=== PATIENT | female | born 1985 | race Caucasian/White ===

== ENCOUNTER → 2024-02-20 14:44 | Outpatient (REF) | payer BC, SELFPAY | LOC: HWRAD 14:44 | PROVIDERS: ATTENDING PHYSICIAN Internal Medicine Endocrinology, Diabetes & Metabolism; FAMILY PHYSICIAN Physician Assistant Medical | DX: E04.2 Nontoxic multinodular goiter (principal); M25.561 Pain in right knee | CPT/HCPCS: 73564; 76536 ==

== ENCOUNTER → 2024-04-30 08:41 | Outpatient (REF) | payer BC, SELFPAY ==
[2024-04-30 09:09] VITALS: BP 141/91; BP_SYST 89
== END ==
LOC: RADI 08:41
PROVIDERS: ATTENDING PHYSICIAN Internal Medicine Endocrinology, Diabetes & Metabolism
DX: E04.1 Nontoxic single thyroid nodule (principal)
CPT/HCPCS: 88173; 10005

== ENCOUNTER 2024-06-24 06:19 | Day surgery (SDC) | payer BC, SELFPAY ==
[2024-06-19 14:03] VITALS: BMI 53.3
[2024-06-19 14:56] LABS: Hematocrit 38.4 % (37.0-47.0); Hemoglobin 12.7 g/dL (12.0-16.0); Mean Corp Hgb Conc. 33.1 g/dL (33.0-37.0); Mean Corpuscular Hgb 26.8 pg (27.0-31.0); Mean Corpuscular Volume 81.2 fL (81.0-99.0); Mean Platelet Volume 9.8 fL (7.4-10.4); Platelet Count 338 10^3/uL (130-400); Red Blood Cell Count 4.73 10^6/uL (4.20-5.40); Red Cell Dist. Width 13.4 % (11.5-14.5)
[2024-06-19 15:05] LABS: INR 1.08
[2024-06-19 15:24] LABS: ALT (SGPT) 25 U/L (0-35); AST (SGOT) 35 U/L (14-36); Albumin 4.1 g/dl (3.5-5.0); Alkaline Phosphatase 79 U/L (38-126); Blood Urea Nitrogen 13 mg/dl (7-17); Calcium 8.9 mg/dl (8.4-10.2); Carbon Dioxide 21 mmol/L (22-30); Chloride 105 mmol/L (98-107); Estimated Creatinine Clearance > 125 ml/min; Glucose 74 mg/dl (70-99); Potassium 3.8 mmol/L (3.5-5.1); Sodium 136 mmol/L (135-145); Total Bilirubin 0.8 mg/dl (0.2-1.3); eGFR > 60.00
[2024-06-24] VITALS (15 sets, daily range): BP systolic 112–149; BP diastolic 68–93; BMI 53.3
[2024-06-24] MEDS: NORMOSOL-R 1000 IV (09:19)
[2024-06-24] MEDS: TYLENOL 1000 MG PO (09:21)
[2024-06-24] MEDS: NEURONTIN 300 MG PO (09:22)
[2024-06-24] MEDS: HEPARIN 5000 UNITS SC (09:22)
[2024-06-24 09:37] LABS: HCG, Urine Qualitative Screen Negative
--- NOTE | 2024-06-24 11:28 | OR.RPT ---
Operative Report
Operative Report
PATIENT NAME: Ximena Mistry
DATE OF : 1985
DATE OF OPERATION: June 24, 2024
PREOPERATIVE DIAGNOSIS: Right Thyroid Cancer - C73
POSTOPERATIVE DIAGNOSIS: Same
SURGEON: Eddie Grover M.D.
OPERATION: Right Thyroidectomy with Limited Neck Dissection - 98109
ANESTHESIA: GET
ESTIMATED BLOOD LOSS: 3 cc
DRAINS: None
SPECIMEN: right total thyroid lobe and isthmus and right level paratracheal tissue
FINDINGS: right thyroid tumor
COMPLICATIONS:� None
PROCEDURE:
The patient was taken to the operating room and placed in the usual supine position. After adequate general endotracheal anesthesia was established, the patient�s neck was extended, prepped, and draped in the typical sterile fashion. A 5 cm
transcervical incision was made two fingerbreadths above the sternal notch. The skin incision was made with the #15 blade, which was taken through the skin into the subcutaneous tissue. The underlying platysma muscle was divided, and subplatysmal
flaps were created superiorly to the thyroid cartilage and inferiorly to the sternal notch. Strap muscles were identified and at the midline.
Attention was turned to the patient�s right thyroid lobe. The right thyroid lobe was mobilized medially. During this process, the right middle thyroid vein and inferior thyroid artery were dissected and ligated with Ligasure. Next, the right
superior pole was taken down by dissecting and transecting the superior pole vessels with a Ligasure. The right thyroid lobe was mobilized medially. During this process, the right recurrent laryngeal nerve was identified and preserved throughout its
entire course. The right superior parathyroid gland was identified and preserved. The right thyroid lobe with isthmus was resected off the trachea and sent to the pathology department.
At this time, the right neck dissection was performed. The tissue between the right carotid artery to the trachea into the anterior mediastinum was carefully dissected. The previously identified recurrent laryngeal nerve and parathyroid glands were
preserved. The tissue was removed and sent to the pathology department.
After obtaining adequate hemostasis, the strap muscle was approximated with #3-0 Vicryl in a running fashion, and platysma muscles were reapproximated with #3-0 Vicryl in an interrupted fashion, and the skin was approximated with #4-0 Monocryl in a
running subcuticular fashion. Steri-strips and sterile dressings were placed. The patient tolerated the procedure well. The final instrument, needle, and sponge counts were correct.
[2024-06-24] MEDS: DILAUDID 0.5 MG IV ×2 (11:50→12:15)
== END 2024-06-24 14:32 | disposition home or self-care (01) ==
LOC: SDS 06:19
PROVIDERS: ATTENDING PHYSICIAN Surgery; FAMILY PHYSICIAN Family Medicine
DX: C73 Malignant neoplasm of thyroid gland (principal); E06.3 Autoimmune thyroiditis
CPT/HCPCS: 60220; 88305; 88307; 36415; 80053; 81025; 85027; 85610; 85730; 93005; C1776

== ENCOUNTER → 2024-12-25 17:03 | Outpatient (REF) | payer BC, SELFPAY | LOC: RAD 17:03 | PROVIDERS: ATTENDING PHYSICIAN Internal Medicine Endocrinology, Diabetes & Metabolism; FAMILY PHYSICIAN Family Medicine | DX: E04.2 Nontoxic multinodular goiter (principal) | CPT/HCPCS: 76536 ==

== ENCOUNTER → 2025-01-20 14:54 | Outpatient (REF) | payer BC, SELFPAY | LOC: HWRAD 14:54 | PROVIDERS: ATTENDING PHYSICIAN Internal Medicine Endocrinology, Diabetes & Metabolism; FAMILY PHYSICIAN Physician Assistant Medical | DX: C73 Malignant neoplasm of thyroid gland (principal) | CPT/HCPCS: 76536 ==

== ENCOUNTER → 2025-01-21 10:29 | Outpatient (REF) | payer BC, SELFPAY ==
[2025-01-21 10:47] VITALS: BP 168/79; BP_SYST 75
== END ==
LOC: RADI 10:29
PROVIDERS: ATTENDING PHYSICIAN Internal Medicine Endocrinology, Diabetes & Metabolism; FAMILY PHYSICIAN Physician Assistant Medical
DX: E04.1 Nontoxic single thyroid nodule (principal)
CPT/HCPCS: 88173; 10005

== ENCOUNTER → 2025-01-27 10:31 | Outpatient (REF) | payer BC, SELFPAY | LOC: RAD 10:31 | PROVIDERS: ATTENDING PHYSICIAN Internal Medicine Endocrinology, Diabetes & Metabolism; FAMILY PHYSICIAN Physician Assistant Medical | DX: C73 Malignant neoplasm of thyroid gland (principal) | CPT/HCPCS: 71250 ==

== ENCOUNTER 2025-03-03 06:08 | Day surgery (SDC) | payer BC, SELFPAY ==
[2025-02-26 11:25] LABS: Hematocrit 39.3 % (37.0-47.0); Hemoglobin 12.5 g/dL (12.0-16.0); Mean Corp Hgb Conc. 31.8 g/dL (33.0-37.0); Mean Corpuscular Hgb 26.6 pg (27.0-31.0); Mean Corpuscular Volume 83.6 fL (81.0-99.0); Mean Platelet Volume 10.5 fL (7.4-10.4); Platelet Count 271 10^3/uL (130-400); Red Cell Dist. Width 13.6 % (11.5-14.5); White Blood Cell Count 6.6 10^3/uL (4.8-10.8)
[2025-02-26 12:05] LABS: ALT (SGPT) 27 U/L (0-35); AST (SGOT) 30 U/L (14-36); Albumin 3.9 g/dl (3.5-5.0); Alkaline Phosphatase 77 U/L (38-126); Blood Urea Nitrogen 16 mg/dl (7-17); Calcium 8.5 mg/dl (8.4-10.2); Carbon Dioxide 27 mmol/L (22-30); Chloride 103 mmol/L (98-107); Glucose 88 mg/dl (70-99); Potassium 4.2 mmol/L (3.5-5.1); Sodium 140 mmol/L (135-145); Total Bilirubin 0.6 mg/dl (0.2-1.3); eGFR > 60.00
[2025-02-26 14:16] VITALS: BMI 51.8
[2025-03-03] VITALS (7 sets, daily range): BP systolic 111–139; BP diastolic 61–83; BMI 51.8
[2025-03-03] MEDS: NEURONTIN 300 MG PO (07:09)
[2025-03-03] MEDS: HEPARIN 5000 UNITS SC (07:09)
[2025-03-03] MEDS: TYLENOL 1000 MG PO (07:09)
[2025-03-03] MEDS: NORMOSOL-R/PLASMALYTE-A 1000 IV (07:20)
[2025-03-03 07:31] LABS: INR 1.03; PT 13.8 Sec (11.4-14.6)
[2025-03-03 07:32] LABS: APTT 27.1 Sec (23.4-35.0)
[2025-03-03] MEDS: DILAUDID 0.5 MG IV (09:07)
--- NOTE | 2025-03-03 09:09 | OR.RPT ---
Operative Report
Operative Report
DATE OF OPERATION: March 03, 2025
PREOPERATIVE DIAGNOSIS: Left Thyroid Nodule - E041
POSTOPERATIVE DIAGNOSIS: Same
SURGEON: Eddie Grover M.D.
OPERATION: Left Thyroidectomy and Limited Neck Dissection - [id number]
ANESTHESIA: GET
ESTIMATED BLOOD LOSS: 3 cc
DRAINS: None
SPECIMEN: left total thyroid lobe and left level paratracheal tissue
FINDINGS: Left thyroid mass with left cervical lymphadenopathy
COMPLICATIONS: None
PROCEDURE:
The patient was taken to the operating room and placed in the usual supine position. After adequate general endotracheal anesthesia was established, the patient�s neck was extended, prepped, and draped in the typical sterile fashion. The old
transcervical incision was re-opened. The skin incision was made with the #15 blade, which was taken through the skin into the subcutaneous tissue. The underlying platysma muscle was divided, and subplatysmal flaps were created superiorly to the
thyroid cartilage and inferiorly to the sternal notch. Strap muscles were identified and at the midline.
Attention was turned to the patient�s left thyroid lobe. The left thyroid lobe was mobilized medially. During this process, the left middle thyroid vein and inferior thyroid artery were dissected and ligated with Ligasure. Next, the left superior
pole was taken down by dissecting and transecting the superior pole vessels with a Ligasure. The left thyroid lobe was mobilized medially.
During this process, the left recurrent laryngeal nerve was identified and preserved throughout its entire course. The left superior parathyroid gland was identified and preserved. The left thyroid lobe with isthmus was resected off the trachea and
sent to the pathology department.
At this time, the left neck dissection was performed. The tissue between the left carotid artery to the trachea into the anterior mediastinum was carefully dissected. The previously identified recurrent laryngeal nerve and parathyroid glands were
preserved. The tissue was removed and sent to the pathology department.
After obtaining adequate hemostasis, the strap muscle was approximated with #3-0 Vicryl in a running fashion, and platysma muscles were reapproximated with #3-0 Vicryl in an interrupted fashion, and the skin was approximated with #4-0 Monocryl in a
running subcuticular fashion. Steri-strips and sterile dressings were placed. The patient tolerated the procedure well. The final instrument, needle, and sponge counts were correct.
[2025-03-03] MEDS: DILAUDID 0.25 MG IV (09:18)
== END 2025-03-03 10:42 | disposition home or self-care (01) ==
LOC: SDS 06:08
PROVIDERS: ATTENDING PHYSICIAN Surgery; FAMILY PHYSICIAN Family Medicine
DX: C73 Malignant neoplasm of thyroid gland (principal); E06.3 Autoimmune thyroiditis
CPT/HCPCS: 60220; 88307; 36415; 80053; 85027; 85610; 85730; 93005; C1776

== ENCOUNTER 2025-03-14 17:00 | Inpatient (IN) | payer BC, SELFPAY ==
[2025-03-14] VITALS (8 sets, daily range): BP systolic 113–181; BP diastolic 56–103; BMI 51.6
--- NOTE | 2025-03-14 12:33 | ED.GENMED ---
History of Present Illness
General
Chief Complaint: Numbness
Source: patient
Exam Limitations: none
Time Seen by Provider: 03/14/25 12:33
Nursing documentation reviewed up to this point in time: agreed with
History of Present Illness
History of Present Illness:
39-year-old female with history of sleep apnea/CPAP, gastric bypass surgery, ADHD, thyroid cancer w R thyroidectomy 06/2024 and L thyroidectomy 11 days ago, presents for numbness and intermittent spasms of right side of face and hands.
Had numb feeling right cheek and arm off and on yesterday 'all day' and woke up this 4 a.m. with persistent numbness right arm and 9 a.m. persistent numbness right side face.
She's had no trouble ambulating, she feels no weakness in the right arm and has full ROM.
Past History
Past History
ED Past Medical History: Cancer (thyroid)
ED Past Surgical History: Other (Right thyroidectomy 06/2024, left thyroidectomy 03/03/2025. )
Social History
Tobacco: Non-smoker
Personal: Single
Living: with family
Employment: Employed
Review of Systems
Review of Systems
Allergies reviewed?: Yes
All Other Systems: ROS reviewed and negative except as documented in HPI and ROS
Constitutional: Denies fever or chills
EENT: Denies sore throat
Respiratory: Denies trouble breathing
Cardiac: Denies chest pain
ABD/GI: Denies abdominal pain, nausea, vomiting or diarrhea
Skin: Reports no symptoms
Neurological: Reports numbness (Left arm, left side of face); Denies dizzy, headache or weakness
Phy Exam
Physical Exam
Physical Exam:
GENERAL: No acute distress. A&Ox3.
CONSTITUTIONAL: Afebrile.
EYES: clear, conjunctivae normal
ENMT: moist mucus membranes, Pharynx nl
RESPIRATORY: Regular respirations, nonlabored, lungs clear.
CARDIOVASCULAR: Regular rate and rhythm, no murmurs, no rubs.
GI: Soft, nontender, normal BS
MUSCULOSKELETAL: Moves with ease. Well perfused.
SKIN: Warm, dry, pink
PSYCH: Normal mood and affect. Well kept, interactive and appropriate
NEUROLOGIC: Awake, alert and oriented. Cranial nerves II through XII intact. Cerebellum intact. Positive Chvostek's sign. Sensation to touch intact and equal both sides of face and right arm. Hand grasps equal. No focal neurological deficits.
Ambulates well with steady gait.
Scores
NIH Stroke Score
Level of Consciousness: 0 - Alert
LOC Questions: 0-Answers both correctly
LOC Commands: 0-Performs both correctly
Best Horizontal Gaze: 0-Normal
Visual Mcneil: 0=Normal, no visual loss
Facial Palsy: 0=Normal, symmetrical
Motor - Right Arm: 0=No drift 10 seconds
Motor - Left Arm: 0=No drift 10 seconds
Motor - Right Le-No drift 5 seconds
Motor - Left Le-No drift 5 seconds
Limb Ataxia: 0-Absent
Sensation: 1-Mild loss
Best Language: 0-No aphasia
Dysarthria: 0-Normal
Extinction and Inattention: 0-No abnormality
Total Score:: 1
Course
Orders/Labs/Results
Orders:
Orders
03/14/25 12:46
CT Head W/o Iv Contrast Urgent
Comment:
Reason For Exam: right arm and face numbness
03/14/25 13:16
Complete Blood Count/With Diff Urgent
Free T4 Urgent
TSH Reflex To Free T4 Urgent
03/14/25 13:17
Comprehensive Metabolic Panel Urgent
Magnesium Urgent
03/14/25 14:26
Test Result ONCE
03/14/25 14:27
HCG, Urine Qualitative Screen Urgent
Date Specimen was Collected: 03/14/25
Time Specimen was Collected: 14:26
Urinalysis Reflex To Culture Urgent
Date Specimen was Collected: 03/14/25
Time Specimen was Collected: 14:26
Urine Microscopic Reflex Cult Urgent
Urine Culture Urgent
CATARINA Source: U
Specimen Description:
Date Specimen was Collected: 03/14/25
Time Specimen was Collected: 14:26
03/14/25 14:36
Electrocardiogram (*1) Urgent
Reason for Study: Other
Other Reason for Exam: hypocalcemia, hypomagnesemia
EKG- Treatment ONCE
03/14/25 14:50
ENDOCRINOLOGY CONSULT Urgent
Consulting Provider: Chris Malik
Was physician already notified: Yes
Reason for consult: post thyroidectomy hypocalcemia
03/14/25 15:50
Magnesium Sulfate 2 Gram/50 ml [Magnesium Sulfate] 2 gram in 50 ml IV NOW
03/14/25 16:12
Admit/Transfer Patient As Directed
Co-Sign Provider:
Level of Care: Inpatient admission
Assign to:: IMU- Intermediate Care
Physician / Group: job
Diagnosis: symtomatic post op hypocalcemia
Reason for Hospitalization: symptomatic post op hypocalcemia
Expected length of stay greater than two midnights?: Yes
ELOS- Estimated Length of Stay in days: 5
I certify the patient meets the requirements for IP care: Yes
03/14/25 16:15
Code Status As Directed
Resuscitation Status: Full Code
03/14/25 17:00
Calcium Gluconate 2,000 mg Dextrose 5%/Water 100 ml [D5w] 100 ml IV ONCE
03/14/25 18:20
Acetaminophen [Tylenol] 1,000 mg PO Q6H PRN
03/14/25 19:31
Bisacodyl [Dulcolax] 10 mg RECTAL [id number] PRN
Docusate W/Senna [Senokot-S] 1 tablet PO BIDPRN PRN
Polyethylene Glycol Powder [Miralax] 17 grams PO DAILYPRN PRN
03/14/25 19:31
Activity As Directed
Activity Level: With Assistance
Vital Signs As Directed
Frequency: Per unit guidelines
Cpap [RESP] Routine
Patient to use own unit?: No
Set Pressure (cm H2O): 5
Instructions: HS
DX Deep Vein Thrombosis Video Routine
03/14/25 20:00
Calcitriol [Rocaltrol] 0.5 mcg PO BID
Calcium Carbonate [Oscal [place] 500] 1,000 mg PO BID
Heparin 5,000 units SC Q12
Magnesium Oxide 500 mg PO BID
03/14/25 20:30
Ionized Calcium Routine
Comment: Q6H times 8
03/15/25 05:44
Complete Blood Count/No Diff IN AM
Comprehensive Metabolic Panel IN AM
Magnesium IN AM
03/15/25 Breakfast
Regular
At Your Request: Full Participation
Levothyroxine [Synthroid] 224 mcg PO DAILY @ 0600
Abnormal Lab Results
03/14/25 03/14/25 03/14/25
13:07 13:16 13:17
Hgb 11.3 L g/dL
(12.0-16.0)
Hct 34.2 L %
(37.0-47.0)
MCH 26.9 L pg
(27.0-31.0)
Absolute Neuts (auto) 7.0 H 10^3/uL
(1.4-6.5)
Neutrophils % 77.1 H %
(42.2-75.2)
Lymphocytes % 16.6 L %
(20.5-51.1)
Calcium 6.5 L* mg/dl
(8.4-10.2)
Magnesium 1.3 L mg/dl
(1.6-2.3)
Total Protein 6.1 L g/dl
(6.3-8.2)
TSH (Reflex) 0.35 L uIU/ml
(0.47-4.68)
PTH Intact 9.8 L pg/ml
(13.6-85.8)
Ur Occult Blood Reflex
Leukocyte Esterase Rfl
Urine WBC (Reflex)
Urine Bacteria (Reflex)
03/14/25
14:27
Hgb
Hct
MCH
Absolute Neuts (auto)
Neutrophils %
Lymphocytes %
Calcium
Magnesium
Total Protein
TSH (Reflex)
PTH Intact
Ur Occult Blood Reflex 1+ A
(Negative)
Leukocyte Esterase Rfl 3+ A
(Negative)
Urine WBC (Reflex) >100 A /HPF
(0-5)
Urine Bacteria (Reflex) Moderate A
(Negative)
03/14/25 13:16
03/14/25 13:17
Vital Signs
Initial and Last Documented VS:
Initial Vital Signs
Temp Pulse Resp BP Pulse Ox
99.4 F 105 16 181/103 100
03/14/25 11:21 03/14/25 11:21 03/14/25 11:21 03/14/25 11:21 03/14/25 11:21
Last Documented Vital Signs
Temp Pulse Resp BP Pulse Ox
98.2 F 79 16 127/90 99
03/15/25 13:11 03/15/25 13:11 03/15/25 13:11 03/15/25 13:11 03/15/25 13:20
MDM/Problems Addressed
Differential Diagnosis Includes:
Hypocalcemia,CVA
MDM/Problems Addressed:
39-year-old female with history of sleep apnea/CPAP, gastric bypass surgery, ADHD, thyroid cancer w R thyroidectomy 06/2024 and L thyroidectomy 11 days ago, presents for numbness and intermittent spasms of right side of face and hands.
Had numb feeling right cheek and arm off and on yesterday 'all day' and woke up this 4 a.m. with persistent numbness right arm and 9 a.m. persistent numbness right side face.
She's had no trouble ambulating, she feels no weakness in the right arm and has full ROM.
Afebrile, NAD
2:00 PM:
CBC with no clinically significant abnormality
CMP: Calcium 6.5, magnesium 1.3
TSH 0.35
Free T4 pending
PTH intact 9.[address] radiology report read: IMPRESSION:
1. Inferior extension of the cerebellar tonsils into the foramen magnum causing compression on the posterior aspect of the cervicomedullary junction. Given the presence of reduced intraventricular fluid volume with 'slit-like' ventricles,
SPONTANEOUS INTRACRANIAL HYPOTENSION is a diagnostic possibility. A CHIARI I MALFORMATION is an alternative diagnostic possibility.
2. No CT evidence for acute intracranial hemorrhage or transcortical infarct.
Patient has had no headache, no focal neurological deficits
Case reviewed with Dr. Samano
Case reviewed with neurosurgery Dr. Sawant who agrees the above CT results are incidental and nothing further needs to be done at this point
Plan: Admit to hospitalist: Hypocalcemia, hypomagnesemia
*Critical Care Note
Total Time (30-74mins, 75-104mins- exclusive of procedures): Not Applicable
ED Attending Note
-
Portions of this chart may have been created with voice recognition software.� Occasional wrong word or��sound alike� substitutions may have occurred due to the inherent limitations of voice recognition software.
Discharge Plan
Departure
Patient Disposition: Admit
Date of Disposition: 03/14/25
Time of Disposition: 14:39
Admit to: Med/Surg
Presentation/result/management discussed w/ accepting MD/DO: Hospitalist
Condition: Fair
Discharge Problem:
Hypocalcemia, Hypomagnesemia, H/O thyroidectomy
Interventions
Interventions:
*Risk Screen - Suicide Last Done: 03/14/25 11:23
*General Assessment Last Done: 03/14/25 12:36
*Neglect/Abuse Screening Last Done: 03/14/25 11:23
*ED- Fall Risk Assessment Last Done: 03/14/25 12:30
*ED COVID-19 Vaccine History Last Done: 03/14/25 12:30
*Nursing Disposition Last Done: 03/15/25 12:58
ED- Neurological Assessment Last Done: 03/15/25 08:23
Discharge Date and Time
Discharge Date/Time: 03/15/25 12:59
[2025-03-14 13:30] LABS: % Basophils 0.4 % (0-2); % Eosinophils 0.7 % (0-6); % Immature Granulocytes 0.3 % (0-0.5); % Lymphocytes 16.6 % (20.5-51.1); % Monocytes 4.9 % (1.7-9.3); % Neutrophils 77.1 % (42.2-75.2); Absolute Eosinophils 0.1 10^3/uL (0-0.7); Absolute Lymphocytes 1.5 10^3/uL (1.2-3.4); Absolute Monocytes 0.5 10^3/uL (0.1-0.6); Hematocrit 34.2 % (37.0-47.0); Hemoglobin 11.3 g/dL (12.0-16.0); Mean Corpuscular Hgb 26.9 pg (27.0-31.0); Mean Corpuscular Volume 81.4 fL (81.0-99.0); Mean Platelet Volume 8.7 fL (7.4-10.4); Nucleated Red Blood Cells % 0 %; Platelet Count 292 10^3/uL (130-400); Red Cell Dist. Width 13.4 % (11.5-14.5); White Blood Cell Count 9.1 10^3/uL (4.8-10.8)
[2025-03-14 13:43] LABS: ALT (SGPT) 21 U/L (0-35); AST (SGOT) 24 U/L (14-36); Albumin 3.5 g/dl (3.5-5.0); Alkaline Phosphatase 59 U/L (38-126); Blood Urea Nitrogen 15 mg/dl (7-17); Calcium 6.5 mg/dl (8.4-10.2); Carbon Dioxide 27 mmol/L (22-30); Chloride 104 mmol/L (98-107); Estimated Creatinine Clearance 122 ml/min; Glucose 99 mg/dl (70-99); Magnesium 1.3 mg/dl (1.6-2.3); Potassium 3.6 mmol/L (3.5-5.1); Sodium 138 mmol/L (135-145); Total Bilirubin 0.4 mg/dl (0.2-1.3); Total Protein 6.1 g/dl (6.3-8.2); eGFR > 60.00
[2025-03-14 13:52] LABS: Intact PTH 9.8 pg/ml (13.6-85.8)
--- NOTE | 2025-03-14 14:05 | EDRN ---
Provider notified of critical value CA
[2025-03-14 14:10] LABS: TSH Reflex To Free T4 0.35 uIU/ml (0.47-4.68)
[2025-03-14 14:35] LABS: Urine Albumin Negative (Neg - Trace); Urine Bilirubin Negative (Negative); Urine Character Slightly Cloudy (Clear); Urine Color Yellow; Urine Glucose Negative (Negative); Urine Ketone Negative (Negative); Urine Leukocyte 3+ (Negative); Urine Nitrite Negative (Negative); Urine Occult Blood 1+ (Negative); Urine Specific Gravity 1.005 (<1.030); Urine Urobilinogen Negative (Neg - 1+)
[2025-03-14 14:36] LABS: HCG, Urine Qualitative Screen Negative
[2025-03-14 14:40] LABS: Free T4 1.82 ng/dl (0.78-2.19)
[2025-03-14 14:43] LABS: Urine Mucus Few; Urine Squamous Cell >30 /LPF (Few)
[2025-03-14 14:45] LABS: Urine White Cell >100 /HPF (0-5)
[2025-03-14 14:46] LABS: Urine Bacteria Moderate (Negative)
--- NOTE | 2025-03-14 15:45 | HPS.HSE ---
Addendum entered and electronically signed by Saleem Nance MD 03/14/25 17:05:
Correction:
- IV 2 g magnesium sulfate to be infused as a 10% solution over 10 to 20 minutes <del>followed</del> <del>by</del> <del>1</del> <del>gram</del> <del>100</del> <del>mL</del> <del>of</del> <del>fluid</del> <del>over</del> <del>1</del>
<del>hrs</del> <del>hour</del>.
Original Note:
Family Physician
-
Family Physician: Joann Reed
Chief Complaint
-
numbness and intermittent spasms of right side of face and hands.
History of Present Illness
HPI
39F POD 11 left thyroidectomy 03/03/2025 POD11 , HX ERIC on HS CPAP, gastric bypass surgery, ADHD, HX Rt thyroidectomy 06/2024 for thyroid CA seen at ER:
- for numbness and intermittent spasms of right side of face and hands.
- Had numb feeling right cheek and arm off and on yesterday 'all day'
- woke up this 4 a.m. with persistent numbness right arm and 9 a.m. persistent numbness right side face.
- no trouble ambulating,
- no weakness in the right arm and has full ROM.
Medical History
Past Medical History
Past Medical History: Reports Cancer (Thyroid CA ), Hypothyroidism (HX Rt thyroidectomy 06/2024 for thyroid CA) and Psychiatric (, ADHD)
Additional Past Medical History:
HX ERIC on HS CPAP, gastric bypass surgery,
Past Surgical History: Reports Bowel Resection (Gastric bypass surgery) and Other ( left thyroidectomy 03/03/2025 HX Rt thyroidectomy 06/2024 for thyroid CA )
Social History
Tobacco: Non-smoker
Alcohol: None
Family History
Family History: Not pertinent
Allergies / Home Medications
Allergies reflects when Allergies were last updated in [facility].
Home Medications with original date entered in [facility]
Allergy/Medication List:
Allergies
Allergy/AdvReac Type Severity Reaction Status Date / Time
No Known Allergies Allergy Verified 03/03/25 06:57
Home Medications
multivitamin 1 tab PO DAILY 06/18/24
acetaminophen 500 mg tablet 1,000 mg PO Q6H PRN pain 02/25/25
ibuprofen 200 mg tablet 600 mg PO Q6H PRN pain 02/25/25
levothyroxine 112 mcg capsule 224 mcg PO DAILY 03/14/25
Review of Systems
-
Constitutional: Reports No Symptoms
EENT: Reports No Symptoms
Respiratory: Reports No Symptoms
Cardiac: Reports No Symptoms
Abdomen/GI: Reports No Symptoms
: Reports No Symptoms
Musculoskeletal: Reports No Symptoms
Skin: Reports No Symptoms
Neurological: Reports See HPI
Endocrine: Reports No Symptoms
Hematologic/Lymphatic: Reports No Symptoms
Psych: Reports No Symptoms
Physical Exam
Vital Signs
Vital Signs
Temp Pulse Resp BP Pulse Ox
99.4 F 90 16 133/100 99
03/14/25 11:21 03/14/25 14:02 03/14/25 14:02 03/14/25 14:02 03/14/25 14:02
Physical Exam
General: Well Developed, Well Nourished and No Apparent Distress
HEENT: NormoCephalic, Moist mucous membranes and Atraumatic
Respiratory: Clear
Cardiac: S1/S2 and Regular Rhythm; No Murmur or Rub
GI: Soft, Non Tender, Non Distended and Normal Bowel Sounds; No Organomegaly
Rectal: Deferred by Provider
Musculoskeletal: No Clubbing, No Cyanosis and No Edema
Skin: No Rash
Neuro: Nonfocal/grossly intact
Laboratory Results
-
03/14/25 13:16
03/14/25 13:17
Laboratory Results
Total Bilirubin 0.4 mg/dl (0.2-1.3) 03/14/25 13:17
AST 24 U/L (14-36) 03/14/25 13:17
ALT 21 U/L (0-35) 03/14/25 13:17
Alkaline Phosphatase 59 U/L (38-126) 03/14/25 13:17
Data Reviewed
-
CT Scan: Report Reviewed by me
Lab Data: Labs Reviewed by me
Old Records: Reviewed
Impression/Plan
-
Vital Signs
Temp Pulse Resp BP Pulse Ox
99.4 F 90 16 133/100 99
03/14/25 11:21 03/14/25 14:02 03/14/25 14:02 03/14/25 14:02 03/14/25 14:02
02/26/25 03/14/25 03/14/25
08:40 13:16 13:17
WBC 9.1
Hgb 12.5 11.3 L
Plt Count 292
Creatinine 0.9
eGFR > 60.00
Calcium 6.5 L*
Magnesium 1.3 L
Total Protein 6.1 L
Albumin 3.5
TSH (Reflex) 0.35 L
Free T4 1.[address]
1. Inferior extension of the cerebellar tonsils into the foramen magnum causing compression on the posterior aspect of the cervicomedullary junction. Given the presence of reduced intraventricular fluid volume with 'slit-like' ventricles,
SPONTANEOUS INTRACRANIAL HYPOTENSION is a diagnostic possibility. A CHIARI I MALFORMATION is an alternative diagnostic possibility.
2. No CT evidence for acute intracranial hemorrhage or transcortical infarct.
Last hospitalist admission:
ASSESSMENT & PLAN
POD11 Rt sided thyroidectomy( 03/03/25) with HX Rt thyroidectomy (June 2024) for thyroid CA s
Post op symptomatic hypocalcemic Ca @ 6.5 with numbness and spasms of right UE and right side face.
Associated hypomagnesemic Mg @ 1.3
- IV 2 g of calcium gluconate in 50 mL of 5% dextrose or normal saline to be infused over 10 to 20 minutes.
- The bolus may be repeated after 10 to 60 minutes
- f/u ionized Ca ( Goal range is 4.8 to 5.6 mg/dL or 1.2 to 1.4 mmol/L)
- started Synthroid 224 mcg daily 10 days ago - current TSH 0.35 and PTH 9.8
- start calcitriol 0.5 mcg BID and oral calcium carbonate 500mg tid
- IV 2 g magnesium sulfate to be infused as a 10% solution over 10 to 20 minutes followed by 1 gram 100 mL of fluid over 1 hrs hour.
- Magnesium repletion to cont if serum magnesium concentration is less than 0.8 mEq/L (1 mg/dL or 0.4 mmol/L).
- Endocrinology consulted
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
Per ER [employer] she d/w Neuro surgeon ( Dr Sawant )
- likely not related to above symptoms
Known condition
HX ERIC on HS CPAP
Gastric bypass surgery
ADHD
DVT Px with LMWH
Code:Full
IMU
[2025-03-14] MEDS: CALCIUM GLUCONATE 120 MG IV (17:35)
[2025-03-14] MEDS: MAGNESIUM SULFATE 50 IV (19:17)
[2025-03-14] MEDS: TYLENOL 1000 MG PO (19:17)
[2025-03-14] MEDS: ROCALTROL 0.5 MCG PO (20:15)
[2025-03-14] MEDS: MAGNESIUM OXIDE 500 MG PO (20:15)
[2025-03-14] MEDS: OSCAL CAL 500 1000 MG PO (20:16)
[2025-03-14] MEDS: HEPARIN 5000 UNITS SC (20:16)
[2025-03-14 20:40] LABS: Ionized Calcium 0.82 mMOL/L (1.15-1.33)
[2025-03-14] MEDS: CALCIUM GLUCONATE 10% INJECTION 60 MG IV (21:44)
[2025-03-15] VITALS (9 sets, daily range): BP systolic 112–156; BP diastolic 64–95; BMI 52.3; BMI 53.2
[2025-03-15 02:17] LABS: Ionized Calcium 0.93 mMOL/L (1.15-1.33)
[2025-03-15] MEDS: TYLENOL 1000 MG PO (02:47)
[2025-03-15] MEDS: SYNTHROID 224 MCG PO (05:49)
[2025-03-15 05:56] LABS: Hematocrit 33.7 % (37.0-47.0); Mean Corp Hgb Conc. 32.6 g/dL (33.0-37.0); Mean Corpuscular Hgb 26.8 pg (27.0-31.0); Platelet Count 276 10^3/uL (130-400); Red Blood Cell Count 4.11 10^6/uL (4.20-5.40); Red Cell Dist. Width 13.5 % (11.5-14.5); White Blood Cell Count 5.8 10^3/uL (4.8-10.8)
[2025-03-15 06:04] LABS: Ionized Calcium 0.87 mMOL/L (1.15-1.33)
[2025-03-15 06:29] LABS: ALT (SGPT) 19 U/L (0-35); AST (SGOT) 20 U/L (14-36); Albumin 3.3 g/dl (3.5-5.0); Alkaline Phosphatase 57 U/L (38-126); Blood Urea Nitrogen 12 mg/dl (7-17); Calcium 7.1 mg/dl (8.4-10.2); Carbon Dioxide 24 mmol/L (22-30); Chloride 106 mmol/L (98-107); Estimated Creatinine Clearance > 125 ml/min; Glucose 95 mg/dl (70-99); Magnesium 1.7 mg/dl (1.6-2.3); Sodium 138 mmol/L (135-145); Total Bilirubin 0.5 mg/dl (0.2-1.3); Total Protein 5.8 g/dl (6.3-8.2); eGFR > 60.00
[2025-03-15] MEDS: HEPARIN 5000 UNITS SC ×2 (08:08→16:55)
[2025-03-15] MEDS: MAGNESIUM OXIDE 500 MG PO ×2 (08:09→19:57)
[2025-03-15] MEDS: OSCAL CAL 500 1000 MG PO ×2 (08:09→19:56)
[2025-03-15] MEDS: ROCALTROL 0.5 MCG PO ×2 (08:09→19:56)
--- NOTE | 2025-03-15 09:36 | CON.NEURO ---
Consultation
Order
Date of Consultation: 03/15/25
Requesting Provider: Patricia Goins MD
Reason for Consult: Numbness of the hands and face. Abnormal CT head
Neurology Consultation Note.
HPI: This is a 39-year-old woman who presented to [facility] on March 14, 2025 with sensory symptoms. According to the patient she has has 1 week of intermittent numbness 'all over my body, like my hand falls asleep'. Yesterday, she
developed facial cramping, primarily on the right side, with associated difficulty speaking. The patient notes that her jaw tightness is mainly on the right side as well.
Ms. Mistry reports frequent headaches, which she has had since September,. Since starting treatment for sleep apnea in September, the headaches have improved but still occur 3-4 times per week, lasting a couple of hours each. She typically takes
Tylenol 1500 mg once a day for pain management.
No reports of neck pain, change in balance, dysphagia. She has had dysphonia that was recently attributed to viral laryngitis by ENT.
ER VS: 181/103-133/69, 105, afebrile
EKG:NSR, QTc Int : 474 ms
PDMP:none
Labs: Calcium�6.5, normal sodium, magnesium�1.7, normal WBCs,
CT head wo contrast-'Inferior extension of the cerebellar tonsils into the foramen magnum causing compression on the posterior aspect of the cervicomedullary junction. Given the presence of reduced intraventricular fluid volume with 'slit-like'
ventricles, SPONTANEOUS INTRACRANIAL HYPOTENSION is a diagnostic possibility. A CHIARI I MALFORMATION is an alternative diagnostic possibility'.
PMH: Follicular carcinoma of the thyroid, hypothyroidism, ERIC, BMI 52, ADHD,
PSH: Right thyroidectomy 06/2024, left thyroidectomy 03/03/2025, gastric bypass,
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
FH:mother-papillary thyroid carcinoma
All:NKDA
ROS: Constitutional: Negative. Negative for chills, fever and unexpected weight change.
HENT: positive for dysphonia
Eyes: Negative. Negative for photophobia, pain and visual disturbance.
Respiratory: Negative for cough, choking and shortness of breath.
Cardiovascular: Negative for chest pain, palpitations and leg swelling.
Gastrointestinal: Negative for abdominal pain and vomiting.
Endocrine: Negative. Negative for cold intolerance.
Genitourinary: Negative for dysuria, flank pain and urgency.
Musculoskeletal: Negative for back pain, gait problem, neck pain and neck stiffness.
Skin: Negative for rash.
Allergic/Immunologic: Negative. Negative for immunocompromised state.
Neurological: Positive for numbness, cramping
Psychiatric/Behavioral: Negative for behavioral problems, confusion and hallucinations.
General: Well developed. In no acute distress.
Cardio: Regular rate and rhythm without murmur. Extremities are without cyanosis or edema.
Neuro:
Mental Status: Alert, oriented to person, place, and date. Normal attention and recall. Good fund of knowledge. Follows complex requests across the midline. Comprehension, naming, and repetition intact.
Cranial Nerves: Pupils are equally round and reactive to light. EOMs full. Visual head full to confrontation. No ptosis. No nystagmus. V1-V3 intact to light touch and pinprick bilaterally, symmetric. Face symmetric. Normal hearing AU. The
palate elevated well. SCMs and traps 5/5. Tongue midline. No dysarthria.Mild to mod dysphonia
Motor: Normal bulk and tone. No pronator or arm drift. Strength 5/5 throughout. No clonus.
Reflexes: 2+ throughout the upper extremities and knees. 2/2 in AJs. Plantar responses flexor bilaterally.Shaw's-neg BL
Sensory: Normal vibration and JPS.
Coordination: No dysmetria or tremor.
Gait: deferred
Assessment and Plan:
I. Symptomatic hypocalcemia
II. Spontaneous intracranial hypotension versus Chiari I malformation.
III. Dysphonia
IV. ERIC
-Fall precautions
-Please obtain brain and C-spine MRI with and without sulema
-will follow
I personally reviewed all radiology and labs along with past medical records pertinent to current medical problems. Total time spent in patient care is 60 minutes.
Thank you for allowing us to participate in the care of this patient. We will continue to follow. Please do not hesitate to contact us with any questions or concerns.
Subjective/Objective
Subjective Data
Date of Service: March 15, 2025
Objective Data
Vital Signs
Temp Pulse Resp BP Pulse Ox
36.6 C 66 22 144/77 98
03/15/25 08:30 03/15/25 08:15 03/15/25 08:15 03/15/25 08:00 03/15/25 08:23
Lab Results
03/15/25 05:44
03/15/25 05:44
Sodium 138 mmol/L (135-145) 03/15/25 05:44
Potassium 4.0 mmol/L (3.5-5.1) 03/15/25 05:44
BUN 12 mg/dl (7-17) 03/15/25 05:44
Glucose 95 mg/dl (70-99) 03/15/25 05:44
Calcium 7.1 mg/dl (8.4-10.2) L 03/15/25 05:44
Patient Allergies
No Known Allergies Allergy (Verified 03/03/25 06:57)
Medications
-
Active Medications
Generic Name Dose Route Start Last Admin
Trade Name Freq PRN Reason Stop Dose Admin
Acetaminophen 1,000 mg 03/14/25 18:20 03/15/25 02:47
Acetaminophen 500 Mg Tablet PO 04/11/25 18:19 1,000 mg
Q6H PRN Administration
pain
Bisacodyl 10 mg 03/14/25 19:31
Bisacodyl 10 Mg Rectal Suppository RECTAL 04/11/25 19:30
[id number] PRN
constipation
Calcitriol 0.5 mcg 03/14/25 20:00 03/15/25 08:09
Calcitriol 0.25 Microgram Capsule PO 04/11/25 19:59 0.5 mcg
BID JEANNIE Administration
Calcium Carbonate 1,000 mg 03/14/25 20:00 03/15/25 08:09
Calcium Carbonate 500 Mg Tablet PO 04/11/25 19:59 1,000 mg
BID JEANNIE Administration
Heparin Sodium 5,000 units 03/14/25 20:00 03/15/25 08:08
Heparin 5,000 Units/Ml 1 Ml Vial SC 04/11/25 19:59 5,000 units
Q12 JEANNIE Administration
Levothyroxine Sodium 224 mcg 03/15/25 06:00 03/15/25 05:49
Levothyroxine 112 Mcg Tablet PO 04/12/25 05:59 224 mcg
DAILY @ 0600 JEANNIE Administration
Magnesium Oxide 500 mg 03/14/25 20:00 03/15/25 08:09
Magnesium Oxide 500 Mg Tablet PO 04/11/25 19:59 500 mg
BID JEANNIE Administration
Polyethylene Glycol 17 grams 03/14/25 19:31
Polyethylene Glycol Powder 17 Grams Packet PO 04/11/25 19:30
DAILYPRN PRN
constipation
Senna/Docusate Sodium 1 tablet 03/14/25 19:31
Docusate W/Senna (Vidhi-Colace) Tablet PO 04/11/25 19:30
BIDPRN PRN
constipation
Sodium Chloride 0 flush 03/14/25 20:00
Sodium Chloride 0.9% (Flush) Syringe IV 04/11/25 19:59
PER PROTOCOL JEANNIE
Home Medications
�Medication �Instructions �Recorded
multivitamin 1 tab PO DAILY 06/18/24
acetaminophen 500 mg tablet 1,000 mg PO Q6HPRN PRN mild pain 02/25/25
ibuprofen 200 mg tablet 600 mg PO Q6HPRN PRN mild pain 02/25/25
levothyroxine 112 mcg tablet 224 mcg PO DAILY 03/14/25
(Synthroid)
Vital Signs and Labs
-
Vital Signs and Labs:
Vital Signs
Temp Pulse Resp BP Pulse Ox
36.6 C 66 22 144/77 98
03/15/25 08:30 03/15/25 08:15 03/15/25 08:15 03/15/25 08:00 03/15/25 08:23
Lab Results
03/15/25 05:44
03/15/25 05:44
Sodium 138 mmol/L (135-145) 03/15/25 05:44
Potassium 4.0 mmol/L (3.5-5.1) 03/15/25 05:44
BUN 12 mg/dl (7-17) 03/15/25 05:44
Glucose 95 mg/dl (70-99) 03/15/25 05:44
Calcium 7.1 mg/dl (8.4-10.2) L 03/15/25 05:44
Medications
-
Medications:
Generic Name Dose Route Start Last Admin
Trade Name Freq PRN Reason Stop Dose Admin
Acetaminophen 1,000 mg 03/14/25 18:20 03/15/25 02:47
Acetaminophen 500 Mg Tablet PO 04/11/25 18:19 1,000 mg
Q6H PRN Administration
pain
Bisacodyl 10 mg 03/14/25 19:31
Bisacodyl 10 Mg Rectal Suppository RECTAL 04/11/25 19:30
[id number] PRN
constipation
Calcitriol 0.5 mcg 03/14/25 20:00 03/15/25 08:09
Calcitriol 0.25 Microgram Capsule PO 04/11/25 19:59 0.5 mcg
BID JEANNIE Administration
Calcium Carbonate 1,000 mg 03/14/25 20:00 03/15/25 08:09
Calcium Carbonate 500 Mg Tablet PO 04/11/25 19:59 1,000 mg
BID JEANNIE Administration
Heparin Sodium 5,000 units 03/15/25 16:00
Heparin 5,000 Units/Ml 1 Ml Vial SC 04/12/25 15:59
Q8 JEANNIE
Levothyroxine Sodium 224 mcg 03/15/25 06:00 03/15/25 05:49
Levothyroxine 112 Mcg Tablet PO 04/12/25 05:59 224 mcg
DAILY @ 0600 JEANNIE Administration
Magnesium Oxide 500 mg 03/14/25 20:00 03/15/25 08:09
Magnesium Oxide 500 Mg Tablet PO 04/11/25 19:59 500 mg
BID JEANNIE Administration
Polyethylene Glycol 17 grams 03/14/25 19:31
Polyethylene Glycol Powder 17 Grams Packet PO 04/11/25 19:30
DAILYPRN PRN
constipation
Senna/Docusate Sodium 1 tablet 03/14/25 19:31
Docusate W/Senna (Vidhi-Colace) Tablet PO 04/11/25 19:30
BIDPRN PRN
constipation
Sodium Chloride 0 flush 03/14/25 20:00
Sodium Chloride 0.9% (Flush) Syringe IV 04/11/25 19:59
PER PROTOCOL JEANNIE
Home Medications
-
Home Medications
multivitamin 1 tab PO DAILY 06/18/24
acetaminophen 500 mg tablet 1,000 mg PO Q6HPRN PRN mild pain 02/25/25
ibuprofen 200 mg tablet 600 mg PO Q6HPRN PRN mild pain 02/25/25
levothyroxine 112 mcg tablet (Synthroid) 224 mcg PO DAILY 03/14/25
[2025-03-15] MEDS: CALCIUM GLUCONATE 2000 MG IV (10:23)
[2025-03-15] MEDS: TORADOL 10 MG IV ×2 (10:23→18:35)
[2025-03-15] MEDS: FLUSH (NSS) 1 FLUSH IV (10:24)
[2025-03-15 10:31] LABS: Iron 54 ug/dl (37-170)
--- NOTE | 2025-03-15 10:31 | W.PN.HOSP.TC ---
Today's Communication/Plan
-
MRI
Correct and follow calcium
Assessment / Plan
Assessment / Plan
39-year-old female with numbness and intermittent spasms of the right side of the face and hands
EKG-sinus rhythm cannot rule out anterior infarct age undetermined
Head CT inferior extension of the cerebellar tonsils into the foramen magnum causing compression of the posterior aspect of the cervicomedullary junction given the presence of reduced intraventricular fluid volume with slitlike ventricles
spontaneous intracranial hypotension is a diagnostic possibility. Chiari I malformation is an alternative diagnosis.
CT chest 01/27/2025-no evidence of metastatic disease in the chest.
CVS: S1-S2 normal
Chest: CTA B/L
Abdomen: Soft, NT / Bowel sounds present
Extremities: No edema
PROBATE JUDGE: no facial droop, Normal cR nerves, Normal sensory motor and reflexes.
# Numbness and intermittent spasms of the right side of the face and hands
Likely secondary to hypocalcemia related to recent thyroid surgery
2 g of calcium gluconate given in the ER
Follow ionized calcium
Intact PTH 9.8
Start calcitriol 0.5 mcg twice daily and oral calcium carbonate 1 gram mg 2 times daily
Endocrinology consulted
# Left hemithyroidectomy on 02/21/2025 Dr.Ho Grover for follicular thyroid cancer with capsular invasion without angioinvasion.
History of right hemithyroidectomy June 20, 2024 -biopsy papillary-follicular variant lymph nodes negative margins clear
Iatrogenic hypothyroidism
Continue Synthroid 225 mcg daily for 10 days current TSH is 0.35
# Hypomagnesemia- continue replacement
# Abnormal CT ER discussed with neurosurgery incidentally Chiari I malformation not related to bowel symptoms
Neuro eval appreciated
MRI ordered
# Sleep apnea on CPAP to be continued
# History of gastric bypass surgery
# Obesity per BMI criteria-52.3
# ADHD
# DVT prophylaxis-subcutaneous heparin
# Full code
D/W Neuro
D/w RN at bed side
Anticipated Discharge: Within 24 hours
Subjective/Interval History
-
Date of Service: March 15, 2025
Objective Data
-
Labs:
Laboratory Results
03/15/25
05:44
WBC 5.8
Hgb 11.0 L
Hct 33.7 L
Plt Count 276
Sodium 138
Potassium 4.0
Chloride 106
Carbon Dioxide 24
BUN 12
Creatinine 0.7
Glucose 95
Calcium 7.1 L
Total Bilirubin 0.5
AST 20
ALT 19
Alkaline Phosphatase 57
Vital Signs:
Vital Signs
Temp Pulse Resp BP Pulse Ox
97.9 F 66 22 144/77 98
03/15/25 08:30 03/15/25 08:15 03/15/25 08:15 03/15/25 08:00 03/15/25 08:23
I&O
03/14/25 03/15/25 03/16/25
06:59 06:59 06:59
Intake Total 480 / 480
Balance 480 / 480
[2025-03-15 10:34] LABS: Percent Saturation 17 % (20-50); Total Iron Binding Capacity 305 ug/dl (265-497)
[2025-03-15] MEDS: NSS (PRESERVATIVE FREE) 0.5 ML IV (10:59)
[2025-03-15] MEDS: ATIVAN 1 MG IV (10:59)
[2025-03-15 11:00] LABS: Ferritin 16.2 ng/ml (6.24-137)
[2025-03-15 11:14] LABS: Vitamin B12 445 pg/ml (239-931)
[2025-03-15 11:27] LABS: Urine Sodium 146 mmol/L (30-90)
[2025-03-15 13:40] LABS: Ionized Calcium 1.03 mMOL/L (1.15-1.33)
--- NOTE | 2025-03-15 13:50 | PTCARENOTE ---
Patient admitted through Emergency Room for increased numbness and tingling of her right face and arm.She recently had thyroid surgery on 03/03/2025.Calcium levels were found to be very low and have been repleted with ongoing monitoring.The patient
had an MRI prior to coming to the floor.The patient is alert and oriented.The patient is not reporting any pain at this time.The patient is independent with ADL'S.She is resting in her bed with the call lindquist in reach.
[2025-03-16] MEDS: HEPARIN 5000 UNITS SC ×2 (00:40→08:54)
[2025-03-16 03:15] VITALS: BP 100/61
[2025-03-16] MEDS: SYNTHROID 224 MCG PO (05:35)
[2025-03-16] MEDS: TYLENOL 1000 MG PO (05:38)
[2025-03-16 07:09] LABS: Ionized Calcium 1.05 mMOL/L (1.15-1.33)
[2025-03-16 07:28] LABS: Blood Urea Nitrogen 17 mg/dl (7-17); Calcium 8.4 mg/dl (8.4-10.2); Carbon Dioxide 26 mmol/L (22-30); Chloride 106 mmol/L (98-107); Estimated Creatinine Clearance > 125 ml/min; Glucose 102 mg/dl (70-99); Magnesium 1.6 mg/dl (1.6-2.3); Potassium 4.3 mmol/L (3.5-5.1); Sodium 139 mmol/L (135-145); eGFR > 60.00
[2025-03-16 07:50] VITALS: BP 141/73
[2025-03-16] MEDS: ROCALTROL 0.5 MCG PO (08:53)
[2025-03-16] MEDS: OSCAL CAL 500 1000 MG PO (08:53)
[2025-03-16] MEDS: CALCIUM GLUCONATE 100 IV (08:53)
[2025-03-16] MEDS: MAGNESIUM OXIDE 500 MG PO (08:53)
[2025-03-16] MEDS: MAGNESIUM SULFATE 102 GRAMS IV (09:31)
--- NOTE | 2025-03-16 09:53 | CM ---
Reviewed the chart notes and spoke with the patient at the bedside. Patient resides with her spouse and mother in a two story home with two steps to enter. The patient reports only DME is a CPAP machine. No VN or SNF in the past. Patient
confirmed her pharmacy of choice is the [facility]. CM continues to be available to patient/family and is monitoring medical plan for needs at discharge.
Plan: Discharge to home when medically stable. No needs anticipated.
--- NOTE | 2025-03-16 11:02 | W.PN.HOSP.TC ---
Addendum entered and electronically signed by Patricia Goins MD 03/16/25 11:27:
Discussed with endocrinology
Recommended to discharge patient with Rocaltrol and calcium 500 mg 3 times daily and magnesium supplements.
Dr. Hodge will get labs and for later this week for the patient and follow-up as needed.
Vitamin D level was added this morning is still pending and
Patient is in a sanchez to go home if she leaves before that we will need to follow-up on the vitamin D levels.
Okay to continue vitamin D and Rocaltrol and endocrinology may eventually stop Rocaltrol.
More than 30 minutes spent in discharge including
Final examination of the patient
Summarizing hospital stay
Instructions for continuing care to all relevant caregivers
Preparation of discharge records, prescriptions, and referral forms
Total time spent (in minutes): 35 min
Original Note:
Today's Communication/Plan
-
I have reached to endocrinology for recommendations
Replace calcium and magnesium
Vitamin D levels pending
Clean-catch urine ordered
Possible discharge today
Assessment / Plan
Assessment / Plan
39-year-old female with numbness and intermittent spasms of the right side of the face and hands
EKG-sinus rhythm cannot rule out anterior infarct age undetermined
Head CT inferior extension of the cerebellar tonsils into the foramen magnum causing compression of the posterior aspect of the cervicomedullary junction given the presence of reduced intraventricular fluid volume with slitlike ventricles
spontaneous intracranial hypotension is a diagnostic possibility. Chiari I malformation is an alternative diagnosis.
CT chest 01/27/2025-no evidence of metastatic disease in the chest.
MRI of the brain-Chiari I malformation. Small central syrinx in the upper cervical spinal cord. No suspicious cord lesions or enhancement. Degenerative disc disease in the mid to lower cervical spine resulting in mild to moderate spinal canal and
neuroforaminal stenosis.
MRI of the brain-with and without contrast-Chiari I malformation. No acute intracranial abnormality or demyelinating disease.
CVS: S1-S2 normal
Chest: CTA B/L
Abdomen: Soft, NT / Bowel sounds present
Extremities: No edema
LINE INSTALLER TROLLEY: no facial droop, Normal cR nerves, Normal sensory motor
# Numbness and intermittent spasms of the right side of the face and hands
Likely secondary to hypocalcemia related to recent thyroid surgery
As needed calcium gluconate
Ionized calcium much better
Intact PTH 9.8
Start calcitriol 0.5 mcg twice daily and oral calcium carbonate 1 gram mg 2 times daily
Check vitamin D level
Endocrinology consulted
# Left hemithyroidectomy on 02/21/2025 Dr.Ho Grover for follicular thyroid cancer with capsular invasion without angioinvasion.
History of right hemithyroidectomy June 20, 2024 -biopsy papillary-follicular variant lymph nodes negative margins clear
Iatrogenic hypothyroidism
Continue Synthroid 225 mcg daily for 10 days current TSH is 0.35
# Hypomagnesemia- continue replacement p.o.
# Abnormal CT ER discussed with neurosurgery incidentally Chiari I malformation not related to bowel symptoms
Neuro eval appreciated
MRI discussed with the patient. Outpatient spine/neurosurgery follow-up discussed with the patient
# Sleep apnea on CPAP to be continued
# History of gastric bypass surgery-discussed with the patient that she needs to follow-up with bariatric team at [place]
# Abnormal urinalysis-contaminated specimen cultures negative. Patient with no urinary symptoms. Check a repeat clean-catch urine
# Obesity per BMI criteria-52.3
# ADHD
# DVT prophylaxis-subcutaneous heparin
# Full code
D/W Neuro
D/w RN at bed side
Anticipated Discharge: Today
Subjective/Interval History
-
Date of Service: March 16, 2025
Objective Data
-
Labs:
Laboratory Results
03/16/25
06:56
Sodium 139
Potassium 4.3
Chloride 106
Carbon Dioxide 26
BUN 17
Creatinine 0.7
Glucose 102 H
Calcium 8.4
Vital Signs:
Vital Signs
Temp Pulse Resp BP Pulse Ox
98.4 F 78 18 141/73 97
03/16/25 07:50 03/16/25 07:50 03/16/25 07:50 03/16/25 07:50 03/16/25 07:50
I&O
03/15/25 03/16/25 03/17/25
06:59 06:59 06:59
Intake Total 480 / 480 1400 / 1400
Balance 480 / 480 1400 / 1400
[2025-03-16] MEDS: TORADOL 10 MG IV (11:19)
--- NOTE | 2025-03-16 11:27 | W.DS.TRANS ---
Addendum entered and electronically signed by Patricia Goins MD 03/16/25 12:20:
additional med
Vit D 25 mcg PO daily
Original Note:
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
-
Discharge Instructions:
Discharge Diagnosis/Procedures Hypocalcemia and related symptoms
Left hemithyroidectomy on 02/21/2025
Hypomagnesemia
Chiari I malformation
Sleep apnea
History of gastric bypass surgery
Diet As tolerated
Activity As tolerated
Driving Restrictions As prior to admission
Instructions:
Stand-Alone Forms:
Changes to Home Medications: Yes
Discharge Medications:
DC Medications w/original date entered in [employer]
multivitamin 1 tab PO DAILY 06/18/24
acetaminophen 500 mg tablet 1,000 mg PO Q6HPRN PRN mild pain 02/25/25
levothyroxine 112 mcg tablet (Synthroid) 224 mcg PO DAILY 03/14/25
calcitriol 0.25 mcg capsule 0.5 mcg (2 x 0.25 mcg) PO BID calcium #60 caps 03/16/25
calcium carbonate 500 mg PO TID Supplement #0 tabs 03/16/25
magnesium oxide 500 mg PO BID Supplement #0 tabs 03/16/25
polyethylene glycol 3350 17 gram oral powder packet 17 g PO DAILYPRN PRN constipation #0 ea 03/16/25
Home Medication Changes
new
calcitriol 0.25 mcg capsule 0.5 mcg (2 x 0.25 mcg) PO BID calcium #60 caps 03/16/25
calcium carbonate 500 mg PO TID Supplement #0 tabs 03/16/25
magnesium oxide 500 mg PO BID Supplement #0 tabs 03/16/25
polyethylene glycol 3350 17 gram oral powder packet 17 g PO DAILYPRN PRN constipation #0 ea 03/16/25
Pending Results: No
[2025-03-16 12:02] LABS: Urine Albumin Negative (Neg - Trace); Urine Bilirubin Negative (Negative); Urine Glucose Negative (Negative); Urine Ketone Negative (Negative); Urine Leukocyte 3+ (Negative); Urine Nitrite Negative (Negative); Urine Occult Blood Negative (Negative); Urine Specific Gravity 1.015 (<1.030); Urine Urobilinogen Negative (Neg - 1+)
[2025-03-16 12:03] LABS: Urine Character Clear (Clear); Urine Color Yellow
[2025-03-16 12:04] VITALS: BP 155/74
[2025-03-16 12:10] LABS: Vitamin D, 25-OH*** 25.6 ng/mL (30-80)
[2025-03-16 12:11] LABS: Ionized Calcium 1.13 mMOL/L (1.15-1.33)
--- NOTE | 2025-03-16 12:21 | W.DS.TRANS ---
Addendum entered and electronically signed by Patricia Goins MD 03/16/25 15:26:
Dictation- [id number]
Original Note:
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
-
Discharge Instructions:
Discharge Diagnosis/Procedures Hypocalcemia and related symptoms
Left hemithyroidectomy on 02/21/2025
Hypomagnesemia
Chiari I malformation
Sleep apnea
History of gastric bypass surgery
Diet As tolerated
Activity As tolerated
Driving Restrictions As prior to admission
Instructions:
Stand-Alone Forms:
Changes to Home Medications: Yes
Discharge Medications:
DC Medications w/original date entered in [employer]
multivitamin 1 tab PO DAILY 06/18/24
acetaminophen 500 mg tablet 1,000 mg PO Q6HPRN PRN mild pain 02/25/25
levothyroxine 112 mcg tablet (Synthroid) 224 mcg PO DAILY 03/14/25
calcitriol 0.25 mcg capsule 0.5 mcg (2 x 0.25 mcg) PO BID calcium #60 caps 03/16/25
calcium carbonate 1,000 mg (2 x 500 mg calcium (1,250 mg)) PO TID Supplement #90 tabs 03/16/25
cholecalciferol (vitamin D3) 25 mcg (1,000 unit) capsule (Vitamin D3) 25 mcg PO DAILY def #30 caps 03/16/25
magnesium oxide 500 mg PO BID Supplement #0 tabs 03/16/25
polyethylene glycol 3350 17 gram oral powder packet 17 g PO DAILYPRN PRN constipation #0 ea 03/16/25
Home Medication Changes
new
calcitriol 0.25 mcg capsule 0.5 mcg (2 x 0.25 mcg) PO BID calcium #60 caps 03/16/25
calcium carbonate 1,000 mg (2 x 500 mg calcium (1,250 mg)) PO TID Supplement #90 tabs 03/16/25
cholecalciferol (vitamin D3) 25 mcg (1,000 unit) capsule (Vitamin D3) 25 mcg PO DAILY def #30 caps 03/16/25
magnesium oxide 500 mg PO BID Supplement #0 tabs 03/16/25
polyethylene glycol 3350 17 gram oral powder packet 17 g PO DAILYPRN PRN constipation #0 ea 03/16/25
Pending Results: No
[2025-03-16 12:31] LABS: Urine Squamous Cell >30 /LPF (Few)
[2025-03-16 12:32] LABS: Urine Amorphous Seen; Urine Mucus Few; Urine Red Blood Cell 0-2 /HPF (0-2)
[2025-03-16 12:33] LABS: Urine Bacteria Few (Negative)
--- NOTE | 2025-03-16 12:43 | W.PN.NEURO.1 ---
Today's Communication / Plan
-
.
Neuro Assessment/Plan
Assessment
I. Generalized paresthesias; most likely secondary to small cervical syrinx
II. Spontaneous intracranial hypotension versus Chiari I malformation.
III. Dysphonia
IV. ERIC
Plan
Check additional blood work for additional metabolic abnormalities producing symptoms as outpatient
Will follow as needed
Subjective/Objective
Subjective Data
Date of Service: March 16, 2025
Objective Data
Vital Signs
Temp Pulse Resp BP Pulse Ox
36.9 C 71 20 155/74 100
03/16/25 12:04 03/16/25 12:04 03/16/25 12:04 03/16/25 12:04 03/16/25 12:04
Lab Results
03/15/25 05:44
03/16/25 06:56
Sodium 139 mmol/L (135-145) 03/16/25 06:56
Potassium 4.3 mmol/L (3.5-5.1) 03/16/25 06:56
BUN 17 mg/dl (7-17) 03/16/25 06:56
Glucose 102 mg/dl (70-99) H 03/16/25 06:56
Calcium 8.4 mg/dl (8.4-10.2) 03/16/25 06:56
Vitamin B12 445 pg/ml (239-931) 03/15/25 05:44
Patient Allergies
No Known Allergies Allergy (Verified 03/03/25 06:57)
Data Reviewed
-
MRI Head: Report Reviewed
Labs: Ordered
Reviewed with: Physician
Old Records: Summarized
[2025-03-16 14:04] LABS: Erythrocyte Sed Rate 9 mm/hour (0-20)
[2025-03-16 14:24] LABS: Ferritin 16.6 ng/ml (6.24-137)
== END 2025-03-16 13:40 | disposition home or self-care (01) | DRG 640 ==
LOC: 2 SOUTH 17:00
PROVIDERS: Registered Nurse; ADMITTING PHYSICIAN Internal Medicine; ATTENDING PHYSICIAN Hospitalist; CONSULT PHYSICIAN Internal Medicine Endocrinology, Diabetes & Metabolism; CONSULT PHYSICIAN Psychiatry & Neurology Neurology; EMERGENCY PHYSICIAN Emergency Medicine; FAMILY PHYSICIAN Physician Assistant Medical
DX: E83.51 Hypocalcemia (principal); G93.5 Compression of brain; E83.42 Hypomagnesemia; G47.33 Obstructive sleep apnea (adult) (pediatric); Z98.84 Bariatric surgery status; Z85.850 Personal history of malignant neoplasm of thyroid; F90.9 Attention-deficit hyperactivity disorder, unspecified type
CPT/HCPCS: 70450; 70553; 72156; 80048; 80053; 81003; 81015; 81025; 82306; 82330; 82607; 82728; 83540; 83550; 83735; 83970; 84300; 84439; 84443; 85025; 85027; 85652; 86038; 86140; 87086; 93005; 96365; 96375; 99285; A9575